=== PATIENT | male | born 1955 | race Caucasian/White ===

== ENCOUNTER 2023-09-17 15:54 | Emergency (ER) | payer OTHER, SELFPAY ==
[2023-09-17 15:58] VITALS: BP 120/72
--- NOTE | 2023-09-17 16:35 | ED.GENMED ---
Addendum entered and electronically signed by Sol Lira PA-C 09/23/23 07:10:
fluid culture staph epidermidis
on clinda
sensitive
no treatment change
Original Note:
History of Present Illness
General
Chief Complaint: Skin Problem
Source: patient and spouse
Time Seen by Provider: 09/17/23 16:18
History of Present Illness
History of Present Illness:
68-year-old male presents to the emergency room with redness, pain and swelling over his right elbow. Patient has been experiencing this for some time. He was seen by his primary care doctor who 'drained it' a couple times. He was recently
started on clindamycin about 5 days ago. His family doctor told him to come to the emergency room if it gets red again. Patient denies any fever, chills, nausea or vomiting. He has worked as a superintendent construction.
Past History
Past History
ED Past Medical History: None
Social History
Tobacco: Non-smoker
Personal:
Living: with family
Employment: Employed
Phy Exam
Physical Exam
Physical Exam:
General: Awake, Alert, Oriented X3. No acute distress.
Vitals: unremarkable
Head: Atraumatic
Eyes: Pupils equal, EOMI
Throat: Airway intact, no exudates
Neuro: Nonfocal
Skin: Warm, dry, no rash
Extremities: pulses equal b/l, no edema. Right arm reveals significantly swollen, fluid-filled olecranon bursa with overlying erythema. Area is tender to palpation.
Course
Orders/Labs/Results
Orders:
Orders
09/17/23 16:39
Fluid Culture with Gram Stain Urgent
JAMEL Source: Bursa
Specimen Description:
Date Specimen was Collected: 09/17/23
Time Specimen was Collected: 16:36
Comment: right olecrenon
Vital Signs
Initial and Last Documented VS:
Initial Vital Signs
Temp Pulse Resp BP Pulse Ox
98.0 F 97 18 120/72 100
09/17/23 15:58 09/17/23 15:58 09/17/23 15:58 09/17/23 15:58 09/17/23 15:58
Last Documented Vital Signs
Temp Pulse Resp BP Pulse Ox
98.0 F 97 18 120/72 100
09/17/23 15:58 09/17/23 15:58 09/17/23 15:58 09/17/23 15:58 09/17/23 15:58
Procedures
Incision/Drainage/Joint Aspiration
Right Elbow:
Anethesia: 1% Lidocaine with Epi
Preparation: cleaned with Betadine
Type of procedure: aspiration
Nature of site: other (Bursa)
How much fluid was obtained?: number in mls (5)
Fluid description: cloudy and straw colored
Treatment: bandaid applied
MDM/Problems Addressed
Differential Diagnosis Includes:
Bursitis, septic bursitis, gout
MDM/Problems Addressed:
Patient presents with significant swelling and redness of the right olecranon bursa. He has been prescribed clindamycin for this. Bursa aspirated of some somewhat cloudy fluid. This to be sent for culture as well as crystal analysis. We will not
change antibiotics at this point pending culture results. Recommend orthopedic follow-up for definitive management in the form of a bursa resection
*Pulse Oximetry
Patient hypoxic: no
*Critical Care Note
Total Time (30-74mins, 75-104mins- exclusive of procedures): Not Applicable
ED Attending Note
-
Portions of this chart may have been created with voice recognition software.� Occasional wrong word or��sound alike� substitutions may have occurred due to the inherent limitations of voice recognition software.
Discharge Plan
Departure
Patient Disposition: Home (Routine Discharge)
Date of Disposition: 09/17/23
Time of Disposition: 16:35
Patient with high blood pressure during this ER visit?: No
Condition: Good
Discharge Problem:
Septic olecranon bursitis
Instructions: Bursitis ED
Prescriptions:
No Action
No Current Medications
0
Referrals:
Manuel Gustafson MD [Family Provider] -
Alton Antonio MD [Active] -
Activity Restrictions/Additional Instructions:
continue the antibiotics you are currently on. We will call you if you need to change based on culure results. Follow up with [facility] for possible bursa removal
Interventions
Interventions:
*General Assessment Last Done: 09/17/23 16:55
*Nursing Disposition Last Done: 09/17/23 16:55
ED-Skin Assessment Last Done: 09/17/23 16:04
Discharge Date and Time
Discharge Date/Time: 09/17/23 16:55
Print Language: MALIAN
== END 2023-09-17 16:55 | disposition home or self-care (01) ==
LOC: EMR 15:54
PROVIDERS: EMERGENCY PHYSICIAN Emergency Medicine; FAMILY PHYSICIAN Internal Medicine
DX: M71.121 Other infective bursitis, right elbow (principal); M25.521 Pain in right elbow
CPT/HCPCS: 20605; 99283; 87015; 87070; 87147; 87186; 87205

== ENCOUNTER → 2023-09-27 09:18 | Outpatient (REF) | payer OTHER, SELFPAY ==
[2023-09-27 10:36] LABS: % Basophils 0.5 % (0-2); % Eosinophils 3.3 % (0-6); % Immature Granulocytes 0.1 % (0-0.5); % Lymphocytes 15.6 % (20.5-51.1); % Monocytes 8.1 % (1.7-9.3); % Neutrophils 72.4 % (42.2-75.2); Absolute Eosinophils 0.3 10^3/uL (0-0.7); Absolute Lymphocytes 1.2 10^3/uL (1.2-3.4); Absolute Monocytes 0.6 10^3/uL (0.1-0.6); Absolute Neutrophils 5.7 10^3/uL (1.4-6.5); Hematocrit 44.1 % (39.0-52.0); Hemoglobin 15.5 g/dL (13.0-18.0); Mean Corp Hgb Conc. 35.1 g/dL (33.0-37.0); Mean Corpuscular Hgb 33.9 pg (27.0-31.0); Mean Corpuscular Volume 96.5 fL (80.0-94.0); Mean Platelet Volume 10.3 fL (7.4-10.4); Nucleated Red Blood Cells % 0 % (-); Platelet Count 276 10^3/uL (130-400); Red Blood Cell Count 4.57 10^6/uL (4.70-6.10); Red Cell Dist. Width 12.8 % (11.5-14.5); White Blood Cell Count 7.8 10^3/uL (4.8-10.8)
[2023-09-27 10:57] LABS: ALT (SGPT) 20 U/L (0-50); AST (SGOT) 27 U/L (17-59); Albumin 4.5 g/dl (3.5-5.0); Alkaline Phosphatase 96 U/L (38-126); Blood Urea Nitrogen 14 mg/dl (9-20); Calcium 9.7 mg/dl (8.4-10.2); Carbon Dioxide 26 mmol/L (22-30); Chloride 103 mmol/L (98-107); Glucose 94 mg/dl (70-99); HDL Cholesterol 62 mg/dl; LDL Cholesterol, Calculated 113 mg/dl; Potassium 4.9 mmol/L (3.5-5.1); Sodium 139 mmol/L (135-145); Total Bilirubin 0.5 mg/dl (0.2-1.3); Total Cholesterol 184 mg/dl (50-199); Total Protein 6.9 g/dl (6.3-8.2); Triglyceride 48 mg/dl (10-149); Very Low Density Lipoprotein 9 mg/dl (0-30); eGFR > 60.00
[2023-09-27 11:25] LABS: PSA, Total - Screen 2.07 ng/ml (0.0-4.0)
== END ==
LOC: RCS 09:18
PROVIDERS: ATTENDING PHYSICIAN Orthopaedic Surgery; FAMILY PHYSICIAN Internal Medicine
DX: Z01.818 Encounter for other preprocedural examination (principal); Z00.00 Encounter for general adult medical examination without abnormal findings; Z13.220 Encounter for screening for lipoid disorders; Z12.5 Encounter for screening for malignant neoplasm of prostate; R91.1 Solitary pulmonary nodule; M70.21 Olecranon bursitis, right elbow
CPT/HCPCS: 36415; 80053; 80061; 85025; 93005; G0103

== ENCOUNTER 2023-09-30 06:19 | Day surgery (SDC) | payer OTHER, SELFPAY ==
--- NOTE | 2023-09-29 15:41 | PTCARENOTE ---
Abn ECG, Dr. Singh notified, 'Ok if stable', no new requests.
[2023-09-30] VITALS (9 sets, daily range): BP systolic 109–126; BP diastolic 63–84; BMI 24.0
[2023-09-30] MEDS: TYLENOL 1000 MG PO (10:58)
[2023-09-30] MEDS: CELEBREX 200 MG PO (10:58)
[2023-09-30] MEDS: NORMOSOL-R 1000 IV (10:58)
[2023-09-30] MEDS: DILAUDID 0.5 MG IV ×2 (13:52→14:24)
== END 2023-09-30 16:12 | disposition home or self-care (01) ==
LOC: SDS 06:19
PROVIDERS: ATTENDING PHYSICIAN Orthopaedic Surgery
DX: M71.121 Other infective bursitis, right elbow (principal)
CPT/HCPCS: 24105; 23931; 88304; 87070; 87075; 87205

== ENCOUNTER → 2024-02-23 12:42 | Outpatient (REF) | payer OTHER, SELFPAY | LOC: HWRAD 12:42 | PROVIDERS: ATTENDING PHYSICIAN Internal Medicine | DX: F17.210 Nicotine dependence, cigarettes, uncomplicated (principal) | CPT/HCPCS: 71271 ==

== ENCOUNTER → 2024-10-26 16:44 | Outpatient (REF) | payer OTHER, SELFPAY ==
[2024-10-26 17:58] LABS: Hematocrit 43.1 % (39.0-52.0); Hemoglobin 15.0 g/dL (13.0-18.0); Mean Corp Hgb Conc. 34.8 g/dL (33.0-37.0); Mean Corpuscular Volume 95.6 fL (80.0-94.0); Nucleated Red Blood Cells % 0 % (-); Platelet Count 241 10^3/uL (130-400); Red Cell Dist. Width 12.7 % (11.5-14.5)
[2024-10-26 18:26] LABS: ALT (SGPT) 24 U/L (0-50); AST (SGOT) 22 U/L (17-59); Albumin 4.5 g/dl (3.5-5.0); Alkaline Phosphatase 84 U/L (38-126); Blood Urea Nitrogen 14 mg/dl (9-20); Calcium 9.2 mg/dl (8.4-10.2); Carbon Dioxide 22 mmol/L (22-30); Chloride 105 mmol/L (98-107); Glucose 81 mg/dl (70-99); Potassium 4.5 mmol/L (3.5-5.1); Sodium 138 mmol/L (135-145); Total Protein 6.9 g/dl (6.3-8.2); eGFR > 60.00
[2024-10-26 19:06] LABS: PSA, Total - Screen 1.60 ng/ml (0.0-4.0); TSH 1.14 uIU/ml (0.47-4.68)
== END ==
LOC: REG 16:44
PROVIDERS: ATTENDING PHYSICIAN Internal Medicine
DX: Z00.00 Encounter for general adult medical examination without abnormal findings (principal); M35.3 Polymyalgia rheumatica; Z12.5 Encounter for screening for malignant neoplasm of prostate; E78.5 Hyperlipidemia, unspecified
CPT/HCPCS: 36415; 80053; 84443; 85025; G0103

== ENCOUNTER → 2025-02-16 08:03 | Outpatient (REF) | payer OTHER, SELFPAY ==
[2025-02-16 10:16] LABS: C-Reactive Protein 13.90 mg/L (0.0-10.00)
== END ==
LOC: RAD 08:03
PROVIDERS: ATTENDING PHYSICIAN Optometrist; FAMILY PHYSICIAN Internal Medicine
DX: M35.3 Polymyalgia rheumatica (principal); M25.551 Pain in right hip; M25.552 Pain in left hip; G45.3 Amaurosis fugax
CPT/HCPCS: 36415; 73523; 85652; 86140

== ENCOUNTER 2025-02-24 06:33 | Outpatient (RCR) | payer OTHER, SELFPAY | END 2025-02-24 23:59 | disposition home or self-care (01) | LOC: RPT 06:33 | PROVIDERS: ATTENDING PHYSICIAN Physician Assistant; FAMILY PHYSICIAN Internal Medicine | DX: H81.10 Benign paroxysmal vertigo, unspecified ear (principal); Z73.6 Limitation of activities due to disability; R42 Dizziness and giddiness | CPT/HCPCS: 97162; 97530 ==

== ENCOUNTER → 2025-03-02 11:43 | Outpatient (REF) | payer OTHER, SELFPAY | LOC: RAD 11:43 | PROVIDERS: ATTENDING PHYSICIAN Optometrist; FAMILY PHYSICIAN Internal Medicine | DX: G45.3 Amaurosis fugax (principal) | CPT/HCPCS: 93880 ==